=== PATIENT | female | born 1945 | race Asian ===

== ENCOUNTER 2024-07-16 16:44 | Inpatient (IN) | payer MEDICARE, OTHER ==
[~2024-07-16] VITALS: Ht 165.1 cm; Wt 77.8 kg
[2024-07-16 17:00] VITALS: PULSE 51; RESP 12; O2SAT 94
[2024-07-16 18:17] LABS: Urine Bacteria None Seen /hpf (None Seen)
[2024-07-16 18:42] LABS: Basophils # (auto) 0 10 ^3/uL (0-0.2); Basophils % (auto) 0.2 % (0.0-2.0); Eosinophils # (auto) 0 10 ^3/uL (0-0.8); Eosinophils % (auto) 0.3 % (0.0-7.0); Hematocrit 39.8 % (36.0-46.0); Hemoglobin 13.4 g/dL (12.2-16.2); Lymphocytes # (auto) 1.3 10 ^3/uL (0.4-5.4); Lymphocytes % (auto) 13.6 % (10.0-50.0); Mean Corpuscular Hemoglobin 27.1 pg (28.0-32.0); Mean Corpuscular Hgb Conc. 33.8 g/dL (32.0-36.0); Mean Corpuscular Volume 80.3 fL (80.0-100.0); Monocytes # (auto) 0.7 10 ^3/uL (0-1.3); Monocytes % (auto) 7.2 % (0.0-12.0); Neutrophils # (auto) 7.2 10 ^3/uL (1.6-8.6); Neutrophils % (auto) 78.7 % (37.0-80.0); Platelet Count (auto) 257 10^3/uL (140-450); Red Blood Cells 4.95 10^6/uL (4.0-5.20); Red Cell Distribution Width 14.3 % (11.8-14.3); White Blood Cell 9.2 10^3/uL (4.4-10.8)
[2024-07-16 18:54] LABS: Urine Blood Negative /uL (Negative); Urine Budding Yeast OCCASIONAL /hpf (None Seen); Urine Clarity Clear (Clear); Urine Color Light-Yellow (Yellow); Urine Protein, UAD 1+ (Negative); Urine Specific Gravity 1.012 (1.001-1.035); Urine Urobilinogen Normal (Negative); Urine WBC 2 /hpf (0 - 5); Urine pH 5.5 (5.0-9.0)
[2024-07-16 18:58] LABS: Alanine Aminotransferase 21 U/L (7-40); Albumin 4.1 g/dL (3.2-4.8); Alkaline Phosphatase 76 U/L (46-116); Anion Gap 7 (5-15); Aspartate Aminotransferase 40 U/L (13-40); Bilirubin, Total 0.3 mg/dL (0.2-1.0); Blood Urea Nitrogen 34 mg/dL (9-23); Calcium 9.6 mg/dL (8.7-10.4); Carbon Dioxide 28 mmol/L (20-31); Chloride 109 mmol/L (98-107); Potassium 4.3 mmol/L (3.5-5.1); Sodium 144 mmol/L (136-145); Total Protein 7.3 g/dL (5.7-8.2)
[2024-07-16 19:02] LABS: Glucose 49 mg/dL (74-106)
[2024-07-16] MEDS: DEXTROSE (50%) 50ML SYRG IV ONE (19:10)
[2024-07-16] MEDS: DEXTROSE 10% 1,000 ML IV ONE (19:30)
[2024-07-16 20:00] VITALS: PULSE 57; RESP 15; O2SAT 96
[2024-07-16] MEDS: DEXTROSE 50% SYRINGE 50 ML IV ONE (20:19)
[2024-07-17] MEDS ORDERED: ONDANSETRON HCL 4 MG/2 ML VIAL IV PRN (03:30)
[2024-07-17] MEDS ORDERED: ACETAMINOPHEN 325 MG TAB PO PRN (03:30)
[2024-07-17] MEDS: cloNIDine HCL 0.1 MG TAB PO ONE (03:34)
[2024-07-17] MEDS: ACCU-CHEK COMFORT CURVE STRIP VI SCH ×2 (03:35→17:21)
[2024-07-17] MEDS: InsuLIN REG 1unit/0.01ml Soln (100units/ml) SC SCH ×2 (03:35→18:00)
[2024-07-17] MEDS: DEXTROSE (50%) 50ML SYRG IV PRN (04:25)
[2024-07-17 07:20] VITALS: PULSE 63; RESP 17; O2SAT 99
[2024-07-17] MEDS: FUROSEMIDE 40 MG TAB PO SCH (11:20)
[2024-07-17] MEDS: EMPAGLIFLOZIN 10 MG TAB PO SCH (11:20)
[2024-07-17] MEDS: ENOXAPARIN SOD 30 MG/0.3 ML SYRINGE SC SCH (11:21)
[2024-07-17 16:38] VITALS: BP 124/54; PULSE 100; RESP 16; TEMP 97.4; O2SAT 100
[2024-07-17 17:00] VITALS: BP 124/54; PULSE 55; RESP 16; TEMP 97.4; O2SAT 100
[2024-07-17] MEDS ORDERED: DEXTROSE (50%) 50ML SYRG IV PRN (17:00)
[2024-07-17 20:00] VITALS: PULSE 62; PULSE 67; RESP 18; O2SAT 95
[2024-07-17 21:00] VITALS: BP 123/58; PULSE 59; RESP 18; TEMP 98.1; O2SAT 99
[2024-07-17] MEDS: PRAVASTATIN SODIUM 20 MG TAB PO SCH (21:57)
[2024-07-18] VITALS (8 sets, daily range): BP systolic 133–140; BP diastolic 44–66; PULSE 50–96; RESP 16–18; TEMP 97.7–98.9; O2SAT 96–100
[2024-07-18 07:57] LABS: Basophils # (auto) 0 10 ^3/uL (0-0.2); Lymphocytes # (auto) 3.2 10 ^3/uL (0.4-5.4)
[2024-07-18 08:02] LABS: Basophils % (auto) 0.4 % (0.0-2.0); Eosinophils # (auto) 0.2 10 ^3/uL (0-0.8); Eosinophils % (auto) 1.9 % (0.0-7.0); Hematocrit 36.8 % (36.0-46.0); Hemoglobin 12.3 g/dL (12.2-16.2); Lymphocytes % (auto) 39.5 % (10.0-50.0); Mean Corpuscular Hemoglobin 26.8 pg (28.0-32.0); Mean Corpuscular Hgb Conc. 33.5 g/dL (32.0-36.0); Mean Corpuscular Volume 80.1 fL (80.0-100.0); Monocytes # (auto) 0.8 10 ^3/uL (0-1.3); Monocytes % (auto) 9.4 % (0.0-12.0); Neutrophils % (auto) 48.8 % (37.0-80.0); Nucleated Red Blood Cells % 0.1 %; Platelet Count (auto) 248 10^3/uL (140-450); Red Cell Distribution Width 14.4 % (11.8-14.3); White Blood Cell 8.2 10^3/uL (4.4-10.8)
[2024-07-18 08:08] LABS: Alanine Aminotransferase 21 U/L (7-40); Albumin 3.6 g/dL (3.2-4.8); Alkaline Phosphatase 70 U/L (46-116); Aspartate Aminotransferase 49 U/L (13-40); BUN/Creatinine Ratio 20.7 (10.0-20.0); Blood Urea Nitrogen 37 mg/dL (9-23); Calcium 9.3 mg/dL (8.7-10.4); Glucose 119 mg/dL (74-106); Potassium 4.5 mmol/L (3.5-5.1); Sodium 142 mmol/L (136-145)
[2024-07-18 08:09] LABS: Bilirubin, Total 0.6 mg/dL (0.2-1.0); Total Protein 6.4 g/dL (5.7-8.2)
[2024-07-18 08:13] LABS: Chloride 108 mmol/L (98-107)
[2024-07-18 08:36] LABS: Anion Gap 5 (5-15); Carbon Dioxide 29 mmol/L (20-31)
[2024-07-18] MEDS ORDERED: ENTE1TAB12 PO (16:24)
[2024-07-18] MEDS ORDERED: FURO40TA4 PO (16:24)
[2024-07-18] MEDS ORDERED: FAMO-12 PO (16:24)
[2024-07-18] MEDS ORDERED: EMPA1TAB PO (16:24)
[2024-07-18] MEDS ORDERED: TRAM50TA2 PO (16:24)
[2024-07-18] MEDS ORDERED: NIFE1TAB31 PO (16:24)
[2024-07-18] MEDS ORDERED: SILD20TA PO (16:24)
[2024-07-18] MEDS ORDERED: PREG150C63 PO (16:24)
[2024-07-18] MEDS ORDERED: MONT10TA23 PO (17:26)
[2024-07-18] MEDS ORDERED: PRAV20TA3 PO (17:26)
[2024-07-18] MEDS ORDERED: DULO60CA41 PO (17:26)
[2024-07-18] MEDS ORDERED: FERR325T24 PO (17:26)
[2024-07-19 01:00] VITALS: BP 153/61; PULSE 59; RESP 18; TEMP 97.9; O2SAT 100
[2024-07-19 05:00] VITALS: BP 153/63; PULSE 54; RESP 18; TEMP 98.3; O2SAT 96
[2024-07-19 07:30] VITALS: PULSE 56; RESP 18; O2SAT 96
[2024-07-19 09:00] VITALS: BP 154/55; PULSE 56; RESP 14; TEMP 97.6; O2SAT 100
[2024-07-19 12:27] VITALS: BP 154/55; PULSE 56; RESP 56; TEMP 36.4; O2SAT 96
[2024-07-19 13:00] VITALS: BP 155/53; PULSE 61; RESP 14; TEMP 97.6; O2SAT 100
== END 2024-07-19 14:00 | disposition home or self-care (01) | DRG 637 ==
LOC: EDUNIT# 16:44 → EDBD 16:44 → ER 17:09 → OVERFLOW 07-17 03:29 → EAST 07-17 16:40 → TELE-EAST 07-17 19:29
PROVIDERS: ADMIT Family Medicine; ATTEND Family Medicine
DX: E11.649 Type 2 diabetes mellitus with hypoglycemia without coma (principal); G93.41 Metabolic encephalopathy; I50.43 Acute on chronic combined systolic (congestive) and diastolic (congestive) heart failure; I13.0 Hypertensive heart and chronic kidney disease with heart failure and stage 1 through stage 4 chronic kidney disease, or unspecified chronic kidney disease; E66.9 Obesity, unspecified; E11.22 Type 2 diabetes mellitus with diabetic chronic kidney disease; E83.52 Hypercalcemia; N18.32 Chronic kidney disease, stage 3b; Z68.30 Body mass index [BMI] 30.0-30.9, adult
CPT/HCPCS: 36415; 70450; 71045; 80053; 81001; 82962; 83036; 83605; 83880; 84443; 84484; 85025; 87081; 87086; 87088; 93005; 93306; 97110; 97116; 97163; 97530; G0378; J1815